=== PATIENT | female | born 1970 | race American Indian/Alaskan Native ===

== ENCOUNTER → 2017-08-21 | Outpatient (CLI) | payer BC, SELFPAY ==
[~2017-08-21] MED LIST: AMIT25; CYCL10; Desyrel50 MG; HYDACE5; LANS15EC PO; LIDO5TP; META800; OXYACE5T PO
[2017-08-23 11:39] LABS: HPV Genotype 16 Not Detected (NOTDET); HPV Genotype 18 Not Detected (NOTDET)
[2017-09-02 10:58] LABS: HPV High Risk Other Not Detected (NOTDET)
== END | disposition home or self-care (01) ==
LOC: OLS 16:29
PROVIDERS: Obstetrics & Gynecology Gynecology
DX: Z12.4 Encounter for screening for malignant neoplasm of cervix (principal)
CPT/HCPCS: 87624; G0123

== ENCOUNTER 2024-05-18 09:21 | Day surgery (SDC) | payer OTHER ==
[~2024-05-18] VITALS: Ht 165.1 cm; Wt 128.2 kg
[~2024-05-18 09:21] MED LIST changes: +Lactated Ringer's 1,000 ML IV ONE
[2024-05-18] MEDS ORDERED: SERT100 (09:43)
[2024-05-18] MEDS ORDERED: GABA300 (09:43)
[2024-05-18] MEDS ORDERED: MELO7.5 (09:44)
[2024-05-18] MEDS ORDERED: Lactated Ringer's 1,000 ML IV ONE (10:25)
--- NOTE | 2024-05-18 10:31 | NUR ---
05/18/24 1031 Stephanie Martin PT. VERBALIZES HAVING PIAN IN HER LEFT KNEE RATING A "7". VERBALIZES HAS BEEN DEALING WITH THE PAIN. HAS NOT TAKEN HER MELOXICAN FOR 2-3 WEEKS.
[2024-05-18] MEDS ORDERED: propofoL 50 ML IV ONE (10:35)
[2024-05-18 15:02] VITALS: BP 131/77
== END 2024-05-18 11:45 | disposition home or self-care (01) ==
LOC: ORSCSDS 09:21
PROVIDERS: Specialist
PROC: 0DJD8ZZ Inspection of Lower Intestinal Tract, Via Natural or Artificial Opening Endoscopic (ICD-10-PCS; principal; 2024-05-18 10:30)
DX: Z12.11 Encounter for screening for malignant neoplasm of colon (principal); Z86.0100 Personal history of colon polyps, unspecified; Z83.719 Family history of colon polyps, unspecified; K64.8 Other hemorrhoids; I25.2 Old myocardial infarction; F41.9 Anxiety disorder, unspecified; G47.33 Obstructive sleep apnea (adult) (pediatric); F32.A Depression, unspecified; M79.7 Fibromyalgia; K21.9 Gastro-esophageal reflux disease without esophagitis; E66.01 Morbid (severe) obesity due to excess calories; Z68.42 Body mass index [BMI] 45.0-49.9, adult; Z87.891 Personal history of nicotine dependence; Z79.899 Other long term (current) drug therapy
CPT/HCPCS: J2704; J7120